=== PATIENT | female | born 1970 ===

== ENCOUNTER 2020-07-05 17:47 | Emergency (ER) | payer MEDICAID, OTHER ==
[~2020-07-05] VITALS: Ht 162.6 cm; Wt 79.1 kg
[2020-07-05 18:25] LABS: BASOPHILS % (AUTO) 1 % (0-1); EOSINOPHILS % (AUTO) 2 % (1-7); LYMPHOCYTES % (AUTO) 48 % (22-44); MEAN CORPUSCULAR HEMOGLOBIN 32.9 pg (27.0-34.8); MEAN CORPUSCULAR HGB CONC 34.4 g/dL (32.4-35.8); MEAN PLATELET VOLUME 7.4 fL (7.4-10.4); MONOCYTES % (AUTO) 4 % (2-9); NEUTROPHILS % (AUTO) 46 % (42-75); PLATELET COUNT 322 x10^3/uL (130-400); RED BLOOD COUNT 4.45 x10^6/uL (3.82-5.3); RED CELL DISTRIBUTION WIDTH 13.6 % (9.6-15.2)
[2020-07-05 18:31] LABS: ALANINE AMINOTRANSFERASE 24 U/L (12-78); ALBUMIN 4.1 g/dL (3.4-5.0); ANION GAP 4 mmol/L (5-15); CALCIUM 8.5 mg/dL (8.5-10.1); CHLORIDE 110 mmol/L (98-107); CREATININE 0.78 mg/dL (0.55-1.02)
[2020-07-05 18:33] LABS: ALKALINE PHOSPHATASE 84 U/L (45-117); BILIRUBIN,TOTAL 0.2 mg/dL (0.2-1.0); TOTAL PROTEIN 8.2 g/dL (6.4-8.2)
[2020-07-05 18:55] LABS: MD NO
[2020-07-05 19:16] VITALS: BP 157/80
--- NOTE | 2020-07-05 20:01 | NUR ---
PT AMBULATED TO ROOM. PT STATES SHE JUST VOIDED IN THE RESTROOM, AND IT WILL BE A BIT BEFORE SHE CAN PEE AGAIN. PT PROVIDED A UA CUP.
[2020-07-05] MEDS ORDERED: OMNIPAQUE 350 MG/ML, 100ML BOTTLE ONE (21:00)
--- NOTE | 2020-07-05 21:08 | NUR ---
URINE COLLECTED AND WALKED TO THE LAB. PT CALM AND IN NO ACUTE DISTRESS.
[2020-07-05 21:11] LABS: MICROSCOPIC INDICATED
--- NOTE | 2020-07-05 22:46 | NUR ---
MD TO BEDSIDE TO TALK WITH PT ON RESULTS FROM TESTS.
[2020-07-05] MEDS ORDERED: KETOROLAC 30 MG/1 ML ONE (22:55)
[2020-07-05] MEDS ORDERED: HYDROcodone/APAP 10/325 MG TABLET ONE (22:55)
[2020-07-05] MEDS ORDERED: HYDROcodone/APAP 10/325 MG TABLET PO ONE (23:00)
[2020-07-05] MEDS ORDERED: KETOROLAC 30 MG/1 ML IVPush ONE (23:00)
--- NOTE | 2020-07-05 23:01 | NUR ---
MEDS GIVEN FOR PAIN TO LOWER BACK. PT TOLERATED WELL. PT TO BE D/C'D.
[2020-07-05] MEDS ORDERED: CEFDINIR 300 MG CAPSULE ONE (23:17)
--- NOTE | 2020-07-05 23:24 | NUR ---
PT A&OX4, NO ACUTE DISTRESS. PT GIVEN F/U AND D/C INSTRUCTIONS AND SHE V/U. PIV D/C'D AND CATH INTACT. PRESCRIPTIONS GIVEN TO PT AND SHE V/U.
[2020-07-05] MEDS ORDERED: CEFDINIR 300 MG CAPSULE PO ONE (23:30)
== END 2020-07-05 23:26 | disposition home or self-care (01) ==
LOC: ED 23:11
DX: N10 Acute pyelonephritis (principal); N39.0 Urinary tract infection, site not specified; R10.84 Generalized abdominal pain
CPT/HCPCS: 36415; 74177; 80053; 81001; 84703; 85025; 87086; 93005; 96374; 99285; J1885; Q9967